=== PATIENT | female | born 1990 | race African-American/Black ===

== ENCOUNTER 2016-10-24 05:43 | Inpatient (IN) ==
[2016-10-24] MEDS ORDERED: CITRIC ACID/SODIUM CITRATE 30 ML UDCUP PO ONE (05:55)
[2016-10-24] MEDS ORDERED: FAMOTIDINE 20 MG/2 ML VIAL IV ONE (05:55)
[2016-10-24] MEDS ORDERED: ceFAZolin 2,000 MG in PREMIX 1 EACH IV ONE (05:55)
[2016-10-24] MEDS: LACTATED RINGERS 1,000 ML IV SCH ×2 (06:14→10:05)
[2016-10-24 07:15] LABS: Basophils % 0.1 % (0.0-0.8); Eosinophils # 0.1 10*3/uL (0.0-0.87); Eosinophils % 0.8 % (0.00-10.9); Hematocrit 31.2 VOL% (35.7-47.0); Hemoglobin 9.9 GM/DL (12.0-16.0); Immature Granulocytes % 0.4 %; Immature Granulocytes Absolute 0.04 #; Lymphocytes # 2.2 10*3/uL (1.4-4.0); Lymphocytes % 23.8 % (21.3-54.2); Mean Corpuscular HGB Conc 31.7 GM/DL (32-36); Mean Corpuscular Hemoglobin 26 PG (27-34); Mean Corpuscular Volume 81.9 FL (87-102); Mean Platelet Volume 11.4 FL (9.6-12.0); Monocytes # 0.6 10*3/uL (0.11-0.8); Neutrophils # 6.1 10*3/uL (1.4-7.4); Neutrophils % 67.9 % (38.7-73.9); Platelet Count 231 T/CUMM (130-400); Red Blood Count 3.81 MC/CUMM (3.8-5.5); Red Cell Distribution Width 14.5 % (9.3-17.3)
[2016-10-24] MEDS ORDERED: OXYTOCIN 10 UNIT/ML VIAL IM ONE (07:36)
[2016-10-24] MEDS ORDERED: OXYTOCIN/LR 30 UNIT/1,000 ML BAG IV ONE (07:36)
--- NOTE | 2016-10-24 09:29 | OB/GYN History & Physical ---
History of Present Illness Chief complaint: In For repeat C/s due to previous c/s History of present illness: Ms. Kunz is a 26 year old female who is a 2 para 1 living 1. Her KRISTIE is 11/03/2016 for an estimated gestational age of 38 and 4 weeks. The patient presents to the labor department for repeat section due to previous section. Her is being performed because of consistent pain and swelling in her lower extremities. The patient also has elevated blood pressures. She has been on labetalol and Procardia during this . The patient has been somewhat noncompliant with her treatment regimen. The risks and benefits of been thoroughly discussed with this patient and significant other and plan care has been discussed with Dr. Vincent and all parties are in agreement with plan. The patient received her care through the [facility] she received routine care her course was complicated by hypertension. The patient is also morbidly obese. Review of systems is negative with exception of above. Home Medications Medication Instructions Recorded Confirmed Type Ferrous Sulfate, Dried [Iron] 160 mg PO DAILY 10/19/16 10/24/16 History Multivitamin () [ 1 tablet PO DAILY 10/19/16 10/24/16 History Vitamin] NIFEdipine XL TAB [Procardia Xl] 30 mg PO DAILY 10/19/16 10/24/16 History Allergies Allergy/AdvReac Type Severity Reaction Status Date / Time No Known Allergies Allergy Verified 10/24/16 05:55 12 point system: reviewed and no additional remarkable complaints except as stated (elevated blood pressures. Morbid obesity.) Medical,Surgical,& Family Hx - Medical History Cardio: History of: Hypertension (PIH w/ this ) No history of: Aneurysm, Cardiac Dysrhythmia, Cerebrovascular Disease, Congenital Heart Disease, CHF, CAD, NH, Pacemaker, PVD, Valvular Heart Disease, Cardiovascular Problems Endocrine: No history of: Dyslipidemia - Surgical History Abdominal Surgeries: Surgical HX of: Abdominal Surgery (c/s 2008) Reproductive Surgeries: Surgical HX of;: Section (2008), Gynecologic Surgery Patient denies;: Breast Surgery, Dilation and Curettage, Hysterectomy, Tubal Ligation - Family History Family History: Reports;: Family Hypertension (Mother), Additional Family History (Mother has 2 leaky heart valves) Denies;: Family Anesthesia Reaction, Family Cancer, Family Diabetes, Family Heart Disease, Family Hematology, Family Psychiatric Problems, Family Stroke - Social History Smoking Status: Never smoker Frequency of Alcohol Use: None Type of Drug Use: None Marital Status: Single Lives With:: Significant Other Functional capacity: independent ambulation 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 General appearance: mild distress - Antepartum / Post Antpartum Exam Cervix -Dilatation: Deferred Breast: bilateral: normal Abdomen obstetrics: Present: bowel sounds normal Vagina: Present: normal moisture Uterus exam: Present: enlarged - Respiratory Respiratory exam: Present: clear to auscultation bilaterally - Cardiovascular Cardiovascular exam: Present: regular rate and rhythm - GI/Abdominal GI/Abdominal exam: Present: normal bowel sounds, soft - Extremities Exam Extremities exam: Present: edema - Neurological Exam Neurological exam: Present: alert, oriented X3 - Psychiatric Psychiatric exam: Present: normal affect, normal mood - Skin Skin exam: Present: normal color, warm Assessment and Plan (1) PIH ( induced hypertension) Status: Acute Assessment and plan: Admit IV Fluids Preop and Consent for repeat section Anticipate viable . Current Visit: Yes (2) Previous section Status: Acute Assessment and plan: Same as above Current Visit: Yes Results - Labs CBC & BMP: 10/24/16 06:57
[2016-10-24 09:34] LABS: PT Patient Result 10.5 SECS; Partial Thromboplastin Time 36.7 SECS (0-40)
[2016-10-24] MEDS ORDERED: METOCLOPRAMIDE 10 MG/2 ML VIAL ONE (09:57)
[2016-10-24] MEDS ORDERED: METOCLOPRAMIDE 10 MG/2 ML VIAL IV ONE (09:58)
[2016-10-24 11:17] LABS: Apearance,Urine Slightly Hazy (Clear); Bilirubin,Urine Negative (Negative); Blood, Urine Negative (Negative); Glucose,Urine (UA) Negative (Negative); Ketones,Urine 80 mg/dL (Negative); Mucus,Urine Few /LPF (Occasional); Nitrite,Urine Negative (Negative); Protein,Urine 30 MG/DL; RBC,Urine 1 /HPF (0-4); Squamous Epithelial Cell,Urine Occasional /HPF (0-10); Urine Color Yellow (Yellow); Urine Specific Gravity 1.025 (1.001-1.035); WBC,Urine 1 /HPF (0-6)
[2016-10-24 11:32] LABS: Albumin 2.4 G/DL (3.4-5.0); Bilirubin,Total 0.4 MG/DL (0.2-1.0); Calcium 8.5 MG/DL (8.5-10.1); Osmolality,Calculated 281.8 MOS/KG (273-304); Potassium 3.4 MMOL/L (3.5-5.1); Total Protein 6.8 G/DL (6.4-8.3)
[2016-10-24] MEDS ORDERED: fentaNYL 100 MCG/2 ML VIAL ONE (12:59)
[2016-10-24] MEDS ORDERED: MORPHINE 10 MG/10 ML VIAL ONE (12:59)
[2016-10-24] MEDS ORDERED: OXYTOCIN/LR 20 UNIT/1,000 ML BAG IV ONE ×2 (13:10→13:20)
--- NOTE | 2016-10-24 13:19 | Operative Note ---
Date of procedure: 10/24/16 Procedure: Preoperative diagnosis: Repeat section, elective sterilization, 39 weeks gestation, morbid obesity Postoperative diagnosis: Same Anesthesia:[] Regional anesthesia Estimated blood loss: []300 mL Surgeon: Dr. Vincent Findings: []Female , 7 lbs. 8 oz., Apgars 9 at 1 minute 9 at 5 minutes, Complications: None Procedure: Low transverse section and bilateral tubal ligation The patient was taken to the operating suite heart tones were obtained prior to and after regional anesthesia was obtained. She was placed in supine position her abdomen was prepped and draped in usual manner for major abdominal surgery. Through an abdominal incision the skin, subcutaneous, fascial layer and peritoneal the abdomen was entered. The bladder flap was created and a low transverse incision was made.. Fluid was clear and normal amount X, Apgars, the placenta was delivered and sent to lab for further evaluation. Injected with intrauterine Pitocin. The first layer of the uterus was closed with #1 Vicryl in a continuous locking manner. Close to imbricate the first layer with #1 Vicryl. The peritoneum was approximated with #2-0 Vicryl.[ A Chacha clamp was used to grasp the fallopian tube. The mesosalpinx was perforated rocksolid distal end of the tube was ligated. The segment in between was excised and the cut edges were then cauterized] All the last sponges and instruments were accounted for 2.) #2-0 Vicryl. Fascia was approximated with #0-0 Maxon.. The skin was approximated with kelly. She tolerated procedure well and was taken to recovery room in stable condition. Surgeon / Physician: Lindsey Vincent Results - Labs CBC & BMP: 10/24/16 06:57 10/24/16 06:52 Discharge Plan - Discharge Medications No Action Ferrous Sulfate, Dried [Iron] 160 mg PO DAILY Multivitamin () [ Vitamin] 1 tablet PO DAILY NIFEdipine XL TAB [Procardia Xl] 30 mg PO DAILY - Follow Up or Referral - Forms/Instructions
[2016-10-24] MEDS ORDERED: ONDANSETRON 4 MG/2 ML VIAL IV PRN (13:20)
[2016-10-24] MEDS ORDERED: ACETAMINOPHEN 325 MG TABLET PO PRN (13:20)
[2016-10-24] MEDS ORDERED: RHO(D) IMMUNE GLOBULIN 300 MCG SYRINGE IM ONE (13:20)
[2016-10-24] MEDS ORDERED: SIMETHICONE CHEW 80 MG TABLET PO PRN (13:20)
[2016-10-24] MEDS ORDERED: LACTATED RINGERS 1,000 ML IV SCH (13:30)
[2016-10-24] MEDS ORDERED: HYDROmorphone 2 MG/1 ML VIAL IV PRN (13:56)
[2016-10-24] MEDS ORDERED: hydrOXYzine HCL 25 MG/1 ML VIAL IM PRN (13:56)
[2016-10-24] MEDS ORDERED: diphenhydrAMINE 50 MG/1 ML VIAL IV PRN (13:56)
[2016-10-24 19:55] LABS: Hematocrit 31.2 VOL% (35.7-47.0); Hemoglobin 9.8 GM/DL (12.0-16.0)
[2016-10-24 21:09] LABS: HIV Antigen/Antibody Result Nonreactive (Nonreactive); Hepatitis B Surface Ag Quant < 0.10 Index; Hepatitis B Surface Ag Result Negative (Negative); Rubella Antibody IgG 31.1 IU/ML
[2016-10-24] MEDS: DOCUSATE SODIUM 100 MG CAPSULE PO SCH (22:25)
[2016-10-25 05:13] LABS: Basophils % 0.2 % (0.0-0.8); Eosinophils % 0.3 % (0.00-10.9); Hematocrit 28.5 VOL% (35.7-47.0); Immature Granulocytes % 0.4 %; Immature Granulocytes Absolute 0.04 #; Lymphocytes # 2.2 10*3/uL (1.4-4.0); Lymphocytes % 22.3 % (21.3-54.2); Mean Corpuscular HGB Conc 31.6 GM/DL (32-36); Mean Corpuscular Hemoglobin 26 PG (27-34); Mean Corpuscular Volume 81.9 FL (87-102); Mean Platelet Volume 11.5 FL (9.6-12.0); Monocytes # 0.9 10*3/uL (0.11-0.8); Monocytes % 8.9 % (1.7-12.7); Neutrophils # 6.6 10*3/uL (1.4-7.4); Neutrophils % 67.9 % (38.7-73.9); Platelet Count 223 T/CUMM (130-400); Red Blood Count 3.48 MC/CUMM (3.8-5.5); Red Cell Distribution Width 14.6 % (9.3-17.3); White Blood Count 9.8 T/CUMM (4-12)
[2016-10-25] MEDS: DOCUSATE SODIUM 100 MG CAPSULE PO SCH ×2 (08:15→20:15)
[2016-10-25] MEDS: FERROUS SULFATE 325 MG TABLET PO SCH ×2 (08:16→20:15)
[2016-10-25] MEDS: MULTIVITAMIN (PRENATAL) TABLET PO SCH (08:16)
[2016-10-25] MEDS: IBUPROFEN 800 MG TABLET PO PRN ×2 (08:16→23:30)
--- NOTE | 2016-10-25 10:18 | OB/GYN Progress Note ---
Assessment and Plan (1) PIH ( induced hypertension) Status: Acute Assessment and plan: Admit IV Fluids Preop and Consent for repeat section Anticipate viable . Current Visit: Yes (2) Previous section Status: Acute Assessment and plan: Same as above Current Visit: Yes (3) S/P repeat low transverse Status: Acute Assessment and plan: Initiate routine postop orders. 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 Bonding well with infant. 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 - Constitutional Vitals: Vital Signs Temp Pulse Resp BP Pulse Ox 10/25/16 07:26 98.4 F 102 H 22 157/92 96 10/25/16 04:00 98.1 F 108 H 18 130/73 99 10/25/16 00:00 99.1 F 108 H 20 119/60 99 10/24/16 20:00 99.2 F 104 H 20 145/84 98 10/24/16 18:30 112 H 22 158/85 97 10/24/16 17:30 112 H 22 145/70 97 10/24/16 16:30 112 H 22 150/76 97 10/24/16 16:00 108 H 22 123/77 97 10/24/16 15:30 98.3 F 106 H 22 155/95 97 General appearance: no acute distress - Antepartum / Post Post Exam Breast: bilateral: normal Abdomen obstetrics: Present: bowel sounds normal Vagina: Present: normal moisture, discharge (light lochia rubra) Uterus exam: Present: enlarged (FF ML) Anus/Rectum: Present: normal perianal skin - Gyencological / Post Surgical Gynocological Exam Lungs: bilateral: normal Chest: Normal S1, Normal S2 Extremities PIN MACHINE OPERATOR: Present: normal Abdomen obstetrics progress note: Present: normal appearance, soft Incision OB: Present: normal, intact - Head Head exam: Present: normal inspection - Respiratory Respiratory exam: Present: clear to auscultation bilaterally - Cardiovascular Cardiovascular exam: Present: regular rate and rhythm - GI/Abdominal GI/Abdominal exam: Present: normal bowel sounds, soft - Extremities Exam Extremities exam: Present: normal inspection - Neurological Exam Neurological exam: Present: alert, oriented X3 - Psychiatric Psychiatric exam: Present: normal affect, normal mood - Skin Skin exam: Present: normal color, warm Results - Labs CBC & BMP: 10/25/16 04:44 10/24/16 06:52
--- NOTE | 2016-10-25 10:52 | Pathology Report from [facility] ---
ACCESSION # : [id number] PATIENT NAME : Janeth Kunz ORDERING DR : KRISHAN PICHARDO MD CLINICAL HX: Repeat with tubal POST-OP DX: Same SPECIMEN INFO: #1 Right fallopian tube segment #2 Left fallopian tube segment GROSS DESCRIPTION: #1 Received fresh labeled with the patient's name "JANETH KUNZ and #1 RT FALLOPIAN TUBE" consists of a 1.9 x 0.7 cm unfimbriated fallopian tube segment. A licensing representative section submitted in cassette #1.#2 Received fresh labeled with the patient's name "JANETH KUNZ and #2 LT FALLOPIAN TUBE" consists of a 3.0 x 0.6 cm unfimbriated fallopian tube segment. A licensing representative section submitted in cassette #2. DIAGNOSIS FOR JANETH KUNZ: #1 RIGHT FALLOPIAN TUBE SEGMENT & #2 LEFT FALLOPIAN TUBE SEGMENT: Complete cross sections of fallopian tubes. SERVICE DATE: 10/25/2016 REPORT DATE: 10/25/2016 PATHOLOGIST: Joe Nash III, M.D. MTDD
[2016-10-25] MEDS ORDERED: RHO(D) IMMUNE GLOBULIN 300 MCG SYRINGE IM ONE (19:00)
[2016-10-25] MEDS: MAGNESIUM HYDROXIDE SUSP 30 ML UDCUP PO PRN (20:15)
[2016-10-26 07:30] VITALS: BP 148/82
[2016-10-26] MEDS: MULTIVITAMIN (PRENATAL) TABLET PO SCH (08:19)
[2016-10-26] MEDS: DOCUSATE SODIUM 100 MG CAPSULE PO SCH (08:19)
[2016-10-26] MEDS: MAGNESIUM HYDROXIDE SUSP 30 ML UDCUP PO PRN (08:19)
[2016-10-26] MEDS: FERROUS SULFATE 325 MG TABLET PO SCH (08:19)
[2016-10-26] MEDS: IBUPROFEN 800 MG TABLET PO PRN (08:20)
--- NOTE | 2016-10-26 10:05 | Discharge Summary ---
Hospital Course - Hospital Course Hospital Course: Ms. Holland is a 26-year-old female who presented for repeat section due to previous section and PIH. The risks and benefits were thoroughly discussed with the patient and she subsequently delivered a viable via C- section per Dr. Vincent. She has followed a normal 2 day postoperative course and she desires to go home. Her incision is well approximated without signs of infection. Her bleeding is minimal with no odor. She has had a normal bowel movement and her bowel sounds are positive. She denies any complaints of pain in her calves. She is bonding well with her . The signs and lab values are stable. She will come back to the office next Sunday for staple removal. Will be discharged home discretions for pain and follow-up appointment in our office. Diagnosis - Discharge Diagnosis (1) PIH ( induced hypertension) Status: Acute (2) Previous section Status: Acute (3) S/P repeat low transverse Status: Acute Specialty Discharge - Follow Up or Referrals Follow up with: Lindsey Vincent MD [Family Provider] - 2 Weeks Discharge Plan - Discharge Data Disposition: Disch To Home/Self Care Condition at Discharge: Stable Discharge Diet: advance to your usual diet, regular diet Activity: no lifting, no prolonged standing Hygiene: may shower Weight Bearing at Discharge: partial weight bearing Driving: not until seen by doctor Contact your physician if you experience:: fever over 101, pain uncontrolled by pain medications - Discharge Medications New Ferrous Sulfate Tab [Feosol Original Tab] 325 mg PO BID #60 tablet HYDROcodone/ACETAMIN 5-325 [[place] 5-325] 2 tablet PO Q6H PRN #30 tablet PRN Reason: Pain Severe (8-10) Ibuprofen Tab [Motrin Tab] 800 mg PO Q8H PRN #30 tablet PRN Reason: Pain Severe (8-10) Continue NIFEdipine XL TAB [Procardia Xl] 30 mg PO DAILY #30 tablet No Action Ferrous Sulfate, Dried [Iron] 160 mg PO DAILY Multivitamin () [ Vitamin] 1 tablet PO DAILY - Follow Up or Referral - Forms/Instructions Exam - Constitutional Vitals: Period Temp Pulse Resp BP Sys/[place]den Pulse Ox Last 24 Hr 97.4 F-98.2 F 90-103 20-22 135-156/77-87 97-99 General appearance: no acute distress - Respiratory Respiratory exam: Present: clear to auscultation bilaterally - GI/Abdominal GI/Abdominal exam: Present: normal bowel sounds, soft - Extremities Exam Extremities exam: Present: normal inspection - Neurological Exam Neurological exam: Present: alert, oriented X3 - Psychiatric Psychiatric exam: Present: normal affect, normal mood - Skin Skin exam: Present: normal color, warm DS: Provider Date of admission: 10/24/16 05:43 Primary care physician: Acosta Capone Attending physician on admission: Lindsey Vincent MD Consults: 10/24/16 05:55 Consult to Anesthesiology [CONS] Routine Consulting Provider: Reason for Anesthesiology: Pre-op Clearance 10/24/16 13:20 Consult to Burlapper [CONS] Routine Consult Burlapper: Breast Feeding Discharging clinician: Anisha Fall CNM Expected date of discharge: 10/26/16
== END 2016-10-26 13:25 | disposition home or self-care (01) | DRG 540 ==
LOC: N.LD 05:43 → N.OB 15:20
PROVIDERS: ADMIT Obstetrics & Gynecology; ATTEND Obstetrics & Gynecology